=== PATIENT | male | born 1995 | race Native Hawaiian/Other Pacific Islander ===

== ENCOUNTER 2020-01-20 11:16 | Outpatient (CLI) | payer OTHER | END 2020-01-20 19:04 | disposition home or self-care (01) | LOC: RAD 11:16 | DX: K04.7 Periapical abscess without sinus (principal); M54.5 Low back pain ==

== ENCOUNTER 2020-03-27 11:10 | Outpatient (CLI) | payer OTHER | END 2020-03-27 21:56 | disposition home or self-care (01) | LOC: LAB 11:10 | PROVIDERS: ATTEND Family Medicine | DX: Z20.828 Contact with and (suspected) exposure to other viral communicable diseases (principal) | CPT/HCPCS: 87635; G2023; U0003 ==

== ENCOUNTER 2020-07-25 21:03 | Emergency (ER) | payer OTHER ==
[~2020-07-25] VITALS: Ht 175.3 cm; Wt 77.1 kg
[2020-07-25 23:10] VITALS: BP 105/51; TEMP 98.7
== END 2020-07-25 23:10 | disposition home or self-care (01) ==
LOC: ED 21:03
DX: U07.1 COVID-19 (principal); J10.1 Influenza due to other identified influenza virus with other respiratory manifestations; F17.210 Nicotine dependence, cigarettes, uncomplicated
CPT/HCPCS: 87502; 87635; 87651; 99283; U0003

== ENCOUNTER 2021-09-13 22:12 | Emergency (ER) | payer OTHER ==
[~2021-09-13] VITALS: Ht 175.3 cm; Wt 79.4 kg
[2021-09-13 23:15] LABS: PLATELET COUNT 191 K/uL (142-355)
[2021-09-13 23:30] LABS: POTASSIUM 3.7 mmol/L (3.6-5.2)
[2021-09-14 01:00] VITALS: BP 130/54; TEMP 98.9
== END 2021-09-14 01:00 | disposition home or self-care (01) ==
LOC: ED 22:12
PROVIDERS: Emergency Medicine
DX: B34.9 Viral infection, unspecified (principal); Z20.822 Contact with and (suspected) exposure to COVID-19
CPT/HCPCS: 36415; 80053; 85027; 87502; 87635; 87651; 99283; J1885; U0003

== ENCOUNTER 2022-01-11 08:23 | Emergency (ER) | payer BC, OTHER ==
[~2022-01-11] VITALS: Ht 175.3 cm; Wt 79.4 kg
[2022-01-11 08:39] VITALS: BP 124/51; TEMP 97
== END 2022-01-11 09:18 | disposition home or self-care (01) ==
LOC: ED 08:23
DX: S30.0XXA Contusion of lower back and pelvis, initial encounter (principal); S20.229A Contusion of unspecified back wall of thorax, initial encounter; V89.2XXA Person injured in unspecified motor-vehicle accident, traffic, initial encounter; Y92.89 Other specified places as the place of occurrence of the external cause
CPT/HCPCS: 96372; 99283; J1885; J2360

== ENCOUNTER 2022-07-20 13:13 | Emergency (ER) | payer BC, OTHER ==
[~2022-07-20] VITALS: Ht 170.2 cm; Wt 77.1 kg
[2022-07-20 13:15] VITALS: BP 123/40; TEMP 98.4
== END 2022-07-20 14:20 | disposition home or self-care (01) ==
LOC: ED 13:13
DX: R21 Rash and other nonspecific skin eruption (principal)
CPT/HCPCS: 99282